=== PATIENT | female | born 1980 | race Two or more races ===

== ENCOUNTER 2021-03-02 00:21 | Inpatient (IN) | payer SELFPAY ==
[~2021-03-02] VITALS: Ht 160 cm; Wt 118.0 kg
[2021-03-02] MEDS ORDERED: ONDANSETRON HCL 4MG/2ML INJ IV STA (00:57)
[2021-03-02] MEDS ORDERED: MORPHINE SULFATE 4 MG/ML CPJ (NOT FOR IM USE) IV STA (00:57)
[2021-03-02] MEDS ORDERED: SODIUM CHLORIDE 0.9% 1,000 ML IV ONE (01:00)
[2021-03-02 01:30] LABS: MEAN PLATELET VOLUME 7.5 fl (7.4-10.4)
[2021-03-02 01:36] LABS: BASOPHILS % 0.8 % (0.0-2.0); EOSINOPHILS % 2.2 % (0.0-5.0); HEMATOCRIT. 37.7 % (36.0-48.0); HEMOGLOBIN. 12.6 g/dL (12.0-16.0); LYMPHOCYTES % 29.6 % (20.0-50.0); MEAN CORPUSCULAR HEMOGLOBIN 27.9 pg (28.0-32.0); MEAN CORPUSCULAR VOLUME 83.7 fL (81.0-99.0); MONOCYTES % 6.1 % (2.0-8.0); NEUTROPHILS % 61.3 % (40.0-76.0); PLATELET 375 x1000/uL (130-400); RED BLOOD CELL COUNT 4.51 mill/uL (4.2-5.4); RED CELL DISTRIBUTION WIDTH 16.1 % (11.6-14.6)
[2021-03-02 01:37] LABS: CHLORIDE 111 mEq/L (98-107)
[2021-03-02] MEDS ORDERED: METRONIDAZOLE 500 MG PREMIX 100 ML IV ONE (03:15)
[2021-03-02] MEDS ORDERED: PIPERACILLIN/TAZ 3.375G PREMIX 50 ML IV ONE (03:15)
[2021-03-02 03:17] LABS: CLARITY URINE CLEAR (CLEAR); COLOR URINE YELLOW (YELLOW); KETONES URINE NEGATIVE (NEGATIVE); LEUKOCYTE ESTERASE URINE NEGATIVE (NEGATIVE); NITRITE URINE NEGATIVE (NEGATIVE); OCCULT BLOOD URINE NEGATIVE (NEGATIVE); PROTEIN URINE NEGATIVE (NEGATIVE); SPECIFIC GRAVITY URINE 1.018 (1.005-1.030); UROBILINOGEN URINE 0.2 E.U./dL (0.2-1.0)
[2021-03-02] MEDS ORDERED: MORPHINE SULFATE 10 MG/ML CPJ IV ONE (04:15)
[2021-03-02] MEDS ORDERED: DIPHENHYDRAMINE 50MG/ML VIAL IV ONE ×3 (04:45→08:30)
[2021-03-02] MEDS ORDERED: CLONIDINE 0.1MG TABLET PO PRN (06:45)
[2021-03-02] MEDS ORDERED: IPRATROPIUM/ALBUTEROL 0.5-3(2.5)MG/3ML NEB NEB PRN (06:45)
[2021-03-02] MEDS ORDERED: DOCUSATE SODIUM 100MG CAPSULE PO PRN (06:45)
[2021-03-02] MEDS ORDERED: ONDANSETRON HCL 4MG/2ML INJ IV PRN ×2 (06:45→13:45)
[2021-03-02] MEDS ORDERED: ACETAMINOPHEN 325MG TABLET PO PRN ×2 (06:45)
[2021-03-02] MEDS ORDERED: GUAIFENESIN 200MG/10ML SUGAR FREE UDC PO PRN (06:45)
[2021-03-02] MEDS ORDERED: MAGNESIUM/ALUMINUM HYDROXIDE/SIMETHICONE 30ML UDC PO PRN (06:45)
[2021-03-02] MEDS ORDERED: NITROGLYCERIN 0.4MG TABLET SL SL PRN (06:45)
[2021-03-02] MEDS ORDERED: LORAZEPAM 0.5MG TABLET PO PRN (06:45)
[2021-03-02] MEDS ORDERED: ENOXAPARIN 40MG/0.4ML SYR SUBCUT SCH (06:45)
[2021-03-02 08:00] VITALS: BP 128/71
[2021-03-02] MEDS ORDERED: VANCOMYCIN 2,000 MG in DEXT 5% WATER 500 ML IV NR ×2 (08:00→10:00)
[2021-03-02] MEDS ORDERED: PIPERACILLIN/TAZ 3.375G PREMIX 50 ML IV SCH (08:00)
[2021-03-02] MEDS ORDERED: ENOXAPARIN 30MG/0.3ML SYR SUBCUT SCH ×3 (08:00→21:00)
[2021-03-02] MEDS ORDERED: HYDROMORPHONE HCL/PF 2MG/ML CPJ IV ONE (08:15)
[2021-03-02] MEDS ORDERED: ZINC SULFATE 220 MG ( 50 ) CAPSULE PO SCH (09:00)
[2021-03-02] MEDS ORDERED: FAMOTIDINE 20MG TABLET PO SCH (09:00)
[2021-03-02] MEDS ORDERED: CHOLECALCIFEROL (D3) 1000 UNIT TABLET PO SCH (09:00)
[2021-03-02] MEDS ORDERED: ASCORBIC ACID 500 MG TABLET PO SCH (09:00)
[2021-03-02] MEDS ORDERED: HYDROMORPHONE HCL/PF 2MG/ML CPJ IV PRN ×2 (09:30→13:45)
[2021-03-02] MEDS ORDERED: PIPERACILLIN/TAZOBACTAM 3.375 G in DEXT 5% WATER 100 ML IV SCH (10:00)
[2021-03-02] MEDS ORDERED: HYDROMORPHONE HCL/PF 2MG/ML CPJ IV NR ×3 (10:15→19:30)
[2021-03-02] MEDS: DIPHENHYDRAMINE 50MG/ML VIAL IV SCH ×4 (11:53→23:30)
[2021-03-02 12:00] VITALS: BP 116/69
[2021-03-02] MEDS ORDERED: SODIUM CHLORIDE 0.9% 1,000 ML IV SCH (13:45)
[2021-03-02 16:00] VITALS: BP 130/77
[2021-03-02] MEDS ORDERED: VANCOMYCIN 1 G PREMIX 200 ML IV SCH ×2 (16:00→18:00)
[2021-03-02 19:51] VITALS: BP 106/51
[2021-03-02] MEDS ORDERED: ZOLPIDEM TARTRATE 5MG TABLET PO PRN (21:00)
[2021-03-02] MEDS: HYDROMORPHONE HCL/PF 2MG/ML CPJ IV PRN (23:30)
[2021-03-03] VITALS: BP 111/67
[2021-03-03] MEDS ORDERED: DIPHENHYDRAMINE 50MG/ML VIAL IV NR (02:45)
[2021-03-03 03:01] VITALS: BP 111/67
[2021-03-03] MEDS: HYDROMORPHONE HCL/PF 2MG/ML CPJ IV PRN (03:01)
[2021-03-03] MEDS: DIPHENHYDRAMINE 50MG/ML VIAL IV SCH (04:00)
== END 2021-03-03 06:10 | disposition left against medical advice (07) | DRG 251 ==
LOC: ER 00:21 → 8WST 04:11 → ENRESERV 07:22 → 8WST 22:04
PROVIDERS: ADMIT Obstetrics & Gynecology; ATTEND Obstetrics & Gynecology
DX: R10.31 Right lower quadrant pain (principal); Z90.49 Acquired absence of other specified parts of digestive tract; Z90.710 Acquired absence of both cervix and uterus
CPT/HCPCS: 36415; 74176; 80053; 80061; 81003; 83036; 83605; 85025; 99291; C1893; J1170; J1200; J1650; J2270; J2405; J2543; J3370; J3490; J7030; J7060